=== PATIENT | female | born 1950 | race Caucasian/White ===

== ENCOUNTER 2016-10-10 12:49 | Emergency (ER) | payer BC ==
--- NOTE | 2016-10-10 14:49 | DIAGNOSTIC IMAGING REPORT ---
PROCEDURE: XR CHEST 2 VIEW INDICATION: COUGH TECHNIQUE: PA and lateral views. COMPARISON: Chest 06/17/2009 FINDINGS: Lungs are clear. Heart and mediastinum are normal. Thorax is normal. IMPRESSION: 1. Negative chest.
--- NOTE | 2016-10-10 16:13 | ED NURSING NOTES ---
Clinical Report - Nurses [facility] [address] [place] [address] 10/10/2016 12:51 Patient: JOVITA MENON TRIAGE Triage time 13:Oct 10 2016. Acuity: LEVEL 3. Chief Complaint: (cough). 13:10/10/16. SEPSIS SCREEN: Sepsis Screen: negative. Negative (no infection suspected/documented). --13:15 Emy Duran R.N. 13:08 10/10/16. BP: 147/87. HR: 85. RR: 16. O2 saturation: 97%. Temp: 97.9 F (oral). Pain level now: 0/10. --13:15 Emy Duran R.N. 13:25 10/10/16. --13:25 Emy Duran R.N. Weight: 57.1 kg stated. Height/Length: 65 inches Per Patient. BMI: 21. --13:07 Emy Duran R.N. Medications Albuterol Sulfate Inhalation. --13:27 Emy Duran R.N. Z-Pack- completed. --13:27 Emy Duran R.N. Prednisone -completed. --13:27 Emy Duran R.N. Allergies No Known Drug Allergy. --13:09 Emy Duran R.N. Medication/allergy information source: the patient. --13:15 Emy Duran R.N. History Arrived by private vehicle. Historian: patient. Onset. (1 months). ( has been to a few times, last today. Sent by for eval. Chest x ray saturday.). She has had a cough productive of moderate amounts of white sputum. She has had difficulty breathing. ( pain in lower chest with cough). No fever, weakness or skin rash. Denies muscle aches. Treatment [employer]: (completed abx and steroids). PAST MEDICAL HX: Has not received pneumonia vaccine or seasonal influenza immunization. SOCIAL HX: Heavy tobacco smoker- less than 1 pack per day (hasnt smoked since last saturday). Occasional alcohol use. No drug use. No infectious disease exposure. ABUSE ASSESSMENT: No report of abuse. SELF HARM ASSESSMENT: A self harm assessment was performed. The patient answered "no" to the question "Have you recently felt down, depressed, or hopeless?", "Have you noticed less interest or pleasure in doing things?", "Do you have thoughts of harming or killing yourself?", "Are you here because you tried to hurt yourself?", "Have you ever tried to hurt yourself before today?", "Have you recently had thoughts about harming or killing others?" and "Do you have any dangerous items in your possession?". FALL RISK ASSESSMENT: Fall risk assessment completed. No fall risk identified. NUTRITIONAL RISK ASSESSMENT: The nutritional risk assessment revealed no deficiencies. FUNCTIONAL ASSESSMENT: Functional assessment: no impairments noted. LEARNING NEEDS ASSESSMENT: The learning needs assessment revealed no barriers. SKIN INTEGRITY ASSESSMENT: Skin integrity risk assessment completed. No skin integrity risk identified. --13:15 Emy Duran R.N. ( Sent by family MD for failure of out patient treatment for URI). --13:25 Emy Duran R.N. PROBLEMS: Smoker. --13:28 Emy Duran R.N. ADDITIONAL SURGERIES: no known surgeries. Interventions ID band on patient. --13:15 Emy Duran R.N. PHYSICAL ASSESSMENT 13:10/10/16. Ambulatory to room. GENERAL / NEURO / PSYCH: Alert. Oriented X 4. Appears in no acute distress. HEENT: Pupils equal, round and reactive to light. Mucous membranes are pink. RESPIRATORY: Rhonchi present. CVS: Pulses within normal limits. GI / : Abdomen soft. SKIN: Skin intact. Skin is warm and dry. Normal skin turgor. --13:19 Emy Duran R.N. NURSING PROGRESS NOTES 13:10/10/16. The initial plan of care for this patient includes an assessment with efforts to address the presence of pain; impairment of the respiratory system. This plan of care was discussed with the patient. Patient gowned. Reassurance given. Two patient identifiers checked. Call light placed in reach. Side rails up x 1. Bed placed in lowest position. Brakes of bed on. Patient ready for evaluation. --13:18 Emy uDran R.N. 13:15 10/10/16. ( warm blanket given to patient). --13:25 Emy Duran R.N. 14:00 10/10/16. ( MD at bedside). --14:03 Emy Duran R.N. 14:15 10/10/16. Patient walked to radiology. (and returned). --14:15 Emy Duran R.N. 14:35 10/10/2016 Duoneb (Ipratropium-Albuterol) Neb TX Nebulizer 1 unit dose given. Given by the nurse. Allergies verified and confirmed 5 rights. (med prepared by RT). --14:35 Emy Duran R.N. 15:18 10/10/16. Overall patient status is the same- she states feels the same. ( cough, moist with rhonchi in bases). Patient waiting for radiology results and disposition. --15:18 Emy Duran R.N. 15:18 10/10/16. BP: 113/71. HR: 81. RR: 18. O2 saturation: 97%. Pain level now 0/10. --15:18 Emy Duran R.N. DISPOSITION / DISCHARGE 16:25 10/10/16. Condition at departure: improved and stable. The goals identified in the patient's plan of care were met. No learning barriers present. Discharge instructions provided and reviewed with the family. Reviewed medication(s) side effects, precautions, dosing and course information. Prescription(s) given to the patient. Reviewed nebulizer use instructions. Reviewed referral to a primary care physician for followup. Summary of care provided to patient. Patient verbalized understanding. Written instructions provided in Ukrainian. The patient was discharged home and accompanied by family. She left the Emergency Department ambulatory and via private vehicle. Family member driving. FALL RISK ASSESSMENT: Fall risk assessment completed. No fall risk identified. --19:26 Emy Duran R.N. 15:17 10/10/16. BP: 113/71. HR: 81. RR: 18. O2 saturation: 97%. Pain level now 0/10. --19:26 Emy Duran R.N. Departure time: 16:25 Oct 10 2016. --19:26 Emy Duran R.N. Locked/Released at 10/10/2016 19:27 by Emy Duran R.N.
--- NOTE | 2016-10-10 16:13 | ED NURSING NOTES ---
Clinical Report - Nurses [facility] [address] [place] [address] 10/10/2016 12:51 Patient: JOVITA MENON TRIAGE Triage time 13:Oct 10 2016. Acuity: LEVEL 3. Chief Complaint: (cough). 13:10/10/16. SEPSIS SCREEN: Sepsis Screen: negative. Negative (no infection suspected/documented). --13:15 Emy Duran R.N. 13:08 10/10/16. BP: 147/87. HR: 85. RR: 16. O2 saturation: 97%. Temp: 97.9 F (oral). Pain level now: 0/10. --13:15 Emy Duran R.N. 13:25 10/10/16. --13:25 Emy Duran R.N. Weight: 57.1 kg stated. Height/Length: 65 inches Per Patient. BMI: 21. --13:07 Emy Duran R.N. Medications Albuterol Sulfate Inhalation. --13:27 Emy Duran R.N. Z-Pack- completed. --13:27 Emy Duran R.N. Prednisone -completed. --13:27 Emy Duran R.N. Allergies No Known Drug Allergy. --13:09 Emy Duran R.N. Medication/allergy information source: the patient. --13:15 Emy Duran R.N. History Arrived by private vehicle. Historian: patient. Onset. (1 months). ( has been to a few times, last today. Sent by for eval. Chest x ray saturday.). She has had a cough productive of moderate amounts of white sputum. She has had difficulty breathing. ( pain in lower chest with cough). No fever, weakness or skin rash. Denies muscle aches. 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 PAST MEDICAL HX: Has not received pneumonia vaccine or seasonal influenza immunization. SOCIAL HX: Heavy tobacco smoker- less than 1 pack per day (hasnt smoked since last saturday). Occasional alcohol use. No drug use. No infectious disease exposure. ABUSE ASSESSMENT: No report of abuse. SELF HARM ASSESSMENT: A self harm assessment was performed. The patient answered "no" to the question "Have you recently felt down, depressed, or hopeless?", "Have you noticed less interest or pleasure in doing things?", "Do you have thoughts of harming or killing yourself?", "Are you here because you tried to hurt yourself?", "Have you ever tried to hurt yourself before today?", "Have you recently had thoughts about harming or killing others?" and "Do you have any dangerous items in your possession?". FALL RISK ASSESSMENT: Fall risk assessment completed. No fall risk identified. NUTRITIONAL RISK ASSESSMENT: The nutritional risk assessment revealed no deficiencies. FUNCTIONAL ASSESSMENT: Functional assessment: no impairments noted. LEARNING NEEDS ASSESSMENT: The learning needs assessment revealed no barriers. SKIN INTEGRITY ASSESSMENT: Skin integrity risk assessment completed. No skin integrity risk identified. --13:15 Emy Duran R.N. ( Sent by family MD for failure of out patient treatment for URI). --13:25 Emy Duran R.N. PROBLEMS: Smoker. --13:28 Emy Duran R.N. ADDITIONAL SURGERIES: no known surgeries. Interventions ID band on patient. --13:15 Emy Duran R.N. PHYSICAL ASSESSMENT 13:10/10/16. Ambulatory to room. GENERAL / NEURO / PSYCH: Alert. Oriented X 4. Appears in no acute distress. HEENT: Pupils equal, round and reactive to light. Mucous membranes are pink. RESPIRATORY: Rhonchi present. CVS: Pulses within normal limits. GI / : Abdomen soft. SKIN: Skin intact. Skin is warm and dry. Normal skin turgor. --13:19 Emy Duran R.N. NURSING PROGRESS NOTES 13:10/10/16. The initial plan of care for this patient includes an assessment with efforts to address the presence of pain; impairment of the respiratory system. This plan of care was discussed with the patient. Patient gowned. Reassurance given. Two patient identifiers checked. Call light placed in reach. Side rails up x 1. Bed placed in lowest position. Brakes of bed on. Patient ready for evaluation. --13:18 Emy Duran R.N. 13:15 10/10/16. ( warm blanket given to patient). --13:25 Emy Duran R.N. 14:00 10/10/16. ( MD at bedside). --14:03 Emy Duran R.N. 14:15 10/10/16. Patient walked to radiology. (and returned). --14:15 Emy Duran R.N. 14:35 10/10/2016 Duoneb (Ipratropium-Albuterol) Neb TX Nebulizer 1 unit dose given. Given by the nurse. Allergies verified and confirmed 5 rights. (med prepared by RT). --14:35 Emy Duran R.N. 15:18 10/10/16. Overall patient status is the same- she states feels the same. ( cough, moist with rhonchi in bases). Patient waiting for radiology results and disposition. --15:18 Emy Duran R.N. 15:18 10/10/16. BP: 113/71. HR: 81. RR: 18. O2 saturation: 97%. Pain level now 0/10. --15:18 Emy Duran R.N. DISPOSITION / DISCHARGE 16:25 10/10/16. Condition at departure: improved and stable. The goals identified in the patient's plan of care were met. No learning barriers present. Discharge instructions provided and reviewed with the family. Reviewed medication(s) side effects, precautions, dosing and course information. Prescription(s) given to the patient. Reviewed nebulizer use instructions. Reviewed referral to a primary care physician for followup. Summary of care provided to patient. Patient verbalized understanding. Written instructions provided in Azeri. The patient was discharged home and accompanied by family. She left the Emergency Department ambulatory and via private vehicle. Family member driving. FALL RISK ASSESSMENT: Fall risk assessment completed. No fall risk identified. --19:26 Emy Duran R.N. 15:17 10/10/16. BP: 113/71. HR: 81. RR: 18. O2 saturation: 97%. Pain level now 0/10. --19:26 Emy Duran R.N. Departure time: 16:25 Oct 10 2016. --19:26 Emy Duran R.N. Locked/Released at 10/10/2016 19:27 by Emy Duran R.N.
--- NOTE | 2016-10-10 16:13 | ED ORDER SUMMARY ---
..... Patient: JOVITA MENON OrderSheet [facility] VisitID: [id number] [address] [place] [address] 66y, F Registration Date/Time: 10/10/2016 ORDER SHEET Weight: 57.1 kg (stated) Allergies: No Known Drug Allergy GENERAL ORDERS: Chest 2V Urgent (14:03 10/10/2016 Fabi Fritz) (Ack 14:07 NHouse ER Tech1) (14:15 NHouse ER Tech1) MEDICATION ORDERS: DuoNeb Neb Tx 1 unit dose (NOW) (14:04 10/10/2016 Fabi Fritz) (14:35 Carole Mcgarry) Levofloxacin PO 500 mg (NOW) (16:14 10/10/2016 Fabi Fritz) IV FLUIDS: ORDER SHEET NOTES: [Electronically signed by Emy Duran R.N. (19:27 10/10/2016)] [Electronically signed by Balta Cohen Dr. (22:30 10/11/2016)] [Electronically locked/signed by Eym Duran R.N. (19:27 10/10/2016)]
--- NOTE | 2016-10-10 16:13 | ED CLINICAL REPORT ---
Clinical Report - Physicians/Mid Levels [facility] [address] [place] [address] 10/10/2016 12:51 Patient: JOVITA MENON Time Seen: 13:53; initial patient contact. Arrived- By private vehicle. Historian- patient. HISTORY OF PRESENT ILLNESS Chief Complaint: COUGH. This started about 1 1/2 weeks ago and is still present (persistent). It was gradual in onset. The illness is described as moderate. The patient has had sputum production, a cough, difficulty breathing, nasal congestion and sinus drainage. She has had a nasal discharge. No fever or chills. Additional history - No known contact with a sick individual. Similar symptoms previously: None. Recent medical care: The patient was seen recently in the office. ( Completed a Z pack last week, no better, now on another Z pack and Levaquin). REVIEW OF SYSTEMS No nausea, vomiting, pedal edema or calf pain. All systems otherwise negative, except as recorded above. PAST HISTORY COPD. Additional Surgeries: no known surgeries. Medications: Prednisone -completed. Z-Pack- completed. Albuterol Sulfate Inhalation. Allergies: No Known Drug Allergy. SOCIAL HISTORY Former smoker, end date 09/23/2017. PHYSICAL EXAM Vital Signs: 10/10/2016 13:08 BP: 147/87. HR: 85. RR: 16. O2 saturation: 97%. Temp: 97.9 F. Pain level now: 0/10. Have been reviewed. Hypertensive. Heart rate normal. Respiratory rate normal. Temperature normal. Oxygen saturation normal. Appearance: Alert. No acute distress. Eyes: Eyes normal inspection. ENT: Pharynx normal. Neck: Normal inspection. No JVD. CVS: Normal heart rate and rhythm. Heart sounds normal. Respiratory: Mild respiratory distress with accessory muscle use and retractions. Mildly prolonged expirations. Expiratory moderate bilateral wheezes diffusely. No rales or rhonchi. Skin: Skin warm and dry. Normal skin color. No rash. Normal skin turgor. Extremities: No calf tenderness. No lower extremity edema. Neuro: Oriented X 3. LABS, X-RAYS, AND EKG Chest X-ray: No acute disease. Moderate hyperinflation present on the right and left with flattening of the diaphragm and an increased AP diameter. Consistent with COPD. Normal lung markings present. Normal heart size. No infiltrate. Views: PA and lateral. Technique: good. The X-rays were independently viewed by me. Prior films were not available for comparison. PROGRESS AND PROCEDURES Course of Care: Prednisone 40 mg PO given. DuoNeb nebulizer treatment (1 unit dose) given. 10/10/2016 15:18 BP: 113/71. HR: 81. RR: 18. O2 saturation: 97%. Vital Signs: have been reviewed as normal. Symptoms much better. Disposition: Discharged home in good and improved condition. Condition: good. CLINICAL IMPRESSION 10/10/2016 15:18 BP: 113/71. HR: 81. RR: 18. O2 saturation: 97%. Vital Signs: have been reviewed as normal. Acute exacerbation of COPD. INSTRUCTIONS Your Current Medications: STOP TAKING THE FOLLOWING MEDICATIONS: Prednisone -completed*. Z-Pack- completed*. CONTINUE TAKING THE FOLLOWING MEDICATIONS: Albuterol Sulfate Inhalation. Prescription Medications: Levofloxacin 500 mg: take 1 tab orally every day for 4 days. (Start on 10/11/16) Prednisone 10 mg tablets: take 4 tablets every day for 5 days ; then take 2 tablets every day for 3 days ; then take 1 tablet every day for 2 days. Dispense sufficient quantity. No refills. Follow-up: Follow up with your doctor in about two days. Call for an appointment. Screening today revealed the patient's blood pressure to be in the normal range. (Electronically signed by Balta Cohen Dr. 10/11/2016 22:30)
--- NOTE | 2016-10-10 16:13 | ED ORDER SUMMARY ---
..... Patient: JOVITA MENON OrderSheet [facility] VisitID: [id number] [address] [place] [address] 66y, F Registration Date/Time: 10/10/2016 ORDER SHEET Weight: 57.1 kg (stated) Allergies: No Known Drug Allergy GENERAL ORDERS: Chest 2V Urgent (14:03 10/10/2016 Fabi Fritz) (Ack 14:07 NHouse ER Tech1) (14:15 NHouse ER Tech1) MEDICATION ORDERS: DuoNeb Neb Tx 1 unit dose (NOW) (14:04 10/10/2016 Fabi Fritz) (14:35 Carole Mcgarry) Levofloxacin PO 500 mg (NOW) (16:14 10/10/2016 Fabi Fritz) IV FLUIDS: ORDER SHEET NOTES: [Electronically signed by Emy Duran R.N. (19:27 10/10/2016)] [Electronically signed by Balta Cohen Dr. (22:30 10/11/2016)] [Electronically locked/signed by Emy Duran R.N. (19:27 10/10/2016)]
--- NOTE | 2016-10-11 22:30 | ED DISCHARGE INSTRUCTIONS ---
Patient: JOVITA MENON General Instructions [facility] VisitID: [id number] [address] [place] [address] 66y, F Registration Date/Time: 10/10/2016 10/10/2016 15:18 BP: 113/71. HR: 81. RR: 18. O2 saturation: 97%. Vital Signs: have been reviewed as normal. Acute exacerbation of COPD. INSTRUCTIONS Your Current Medications: STOP TAKING THE FOLLOWING MEDICATIONS: Prednisone -completed*. Z-Pack- completed*. CONTINUE TAKING THE FOLLOWING MEDICATIONS: Albuterol Sulfate Inhalation. Prescription Medications: Levofloxacin 500 mg: take 1 tab orally every day for 4 days. (Start on 10/11/16) Prednisone 10 mg tablets: take 4 tablets every day for 5 days ; then take 2 tablets every day for 3 days ; then take 1 tablet every day for 2 days. Dispense sufficient quantity. No refills. Follow-up: Follow up with your doctor in about two days. Call for an appointment. Screening today revealed the patient's blood pressure to be in the normal range. ADDITIONAL INFORMATION COPD Flare Both emphysema and chronic bronchitis are forms of chronic obstructive pulmonary disease (COPD). It is most often caused by many years of smoking tobacco. Many things can make your lung disease suddenly get worse. These causes include the common cold, pneumonia, acute bronchitis, missing doses of your regular breathing medicines, or being around smoke, dust, or other air pollutants. A COPD flare may last 7 to 14 days. Your doctor may prescribe medicineto relax your airways and prevent wheezing. Your doctor may also prescribe antibiotics if he or she thinks you havea bacterial infection. Prednisone can helpease inflammation in a severe attack. Home care Here are things you can do at home: Drink lots of water or other fluids (at least 10 glasses a day) during an attack. This will loosen lung secretions and make it easier to breathe. If you have heart or kidney disease, check with your doctor before you drink extra amounts of fluids. Take prescribed medicine exactly at the times advised. If you have a hand-held inhaler or aerosol breathing medicine, don't use it more than once every 4 hours, unless your doctor tells you to. If you were givenan antibiotic or prednisone, take all of the medicine even if you are feeling better after a few days. Don't smoke. Avoid being aroundthe smoke of others. If you were given an inhaler, use it exactly as directed. If you need to use it more often than prescribed, your condition may be getting worse. Call your doctor. Follow-up care Follow up with your health care provider.If you are 65 or older or have chronic asthma or COPD, you should get a single dose of the pneumococcal vaccine and aflu shot each year. You may need a second dose of the pneumococcal vaccine if you had the first dose at a younger age. Your health care provider will let you know if you need a second dose. For all other people, the usual dose for the pneumococcal vaccine is 1 or 2 shots. Yourprovider can discuss this with you. When to seek medical care Get prompt medical attention ifany of these occur: Increased wheezing or shortness of breath Need to use your inhalers more often than usual without relief Fever of 100.4F(38C) or higher, or as directed by your health care provider Coughing up lots of dark-colored or bloody sputum (mucus) Chest pain with each breath You do not start to improve within 24 hours Prednisone Oral tablet What is this medicine? PREDNISONE (PRED ni sone) is a corticosteroid. It is commonly used to treat inflammation of the skin, joints, lungs, and other organs. Common conditions treated include asthma, allergies, and arthritis. It is also used for other conditions, such as blood disorders and diseases of the adrenal glands. How should I use this medicine? Take this medicine by mouth with a glass of water. Follow the directions on the prescription label. Take this medicine with food. If you are taking this medicine once a day, take it in the morning. Do not take more medicine than you are told to take. Do not suddenly stop taking your medicine because you may develop a severe reaction. Your doctor will tell you how much medicine to take. If your doctor wants you to stop the medicine, the dose may be slowly lowered over time to avoid any side effects. Talk to your summer nanny regarding the use of this medicine in children. Special care may be needed. What side effects may I notice from receiving this medicine? Side effects that you should report to your doctor or health home care manager as soon as possible: allergic reactions like skin rash, itching or hives, swelling of the face, lips, or tongue changes in emotions or moods changes in vision depressed mood eye pain fever or chills, cough, sore throat, pain or difficulty passing urine increased thirst swelling of ankles, feet Side effects that usually do not require medical attention (report to your doctor or health home care manager if they continue or are bothersome): confusion, excitement, restlessness headache nausea, vomiting skin problems, acne, thin and shiny skin trouble sleeping weight gain What may interact with this medicine? Do not take this medicine with any of the following medications: metyrapone mifepristone This medicine may also interact with the following medications: aminoglutethimide amphotericin B aspirin and aspirin-like medicines barbiturates certain medicines for diabetes, like glipizide or glyburide cholestyramine cholinesterase inhibitors cyclosporine digoxin diuretics ephedrine female hormones, like estrogens and control pills isoniazid ketoconazole NSAIDS, medicines for pain and inflammation, like ibuprofen or naproxen phenytoin rifampin toxoids vaccines warfarin What if I miss a dose? If you miss a dose, take it as soon as you can. If it is almost time for your next dose, talk to your doctor or health home care manager. You may need to miss a dose or take an extra dose. Do not take double or extra doses without advice. Where should I keep my medicine? Keep out of the reach of children. Store at room temperature between 15 and 30 degrees C (59 and 86 degrees F). Protect from light. Keep container tightly closed. Throw away any unused medicine after the expiration date. What should I tell my health care provider before I take this medicine? They need to know if you have any of these conditions: Krysten's syndrome diabetes glaucoma heart disease high blood pressure infection (especially a virus infection such as chickenpox, cold sores, or herpes) kidney disease liver disease mental illness myasthenia gravis osteoporosis seizures stomach or intestine problems thyroid disease an unusual or allergic reaction to lactose, prednisone, other medicines, foods, dyes, or preservatives or trying to get breast-feeding What should I watch for while using this medicine? Visit your doctor or health home care manager for regular checks on your progress. If you are taking this medicine over a prolonged period, carry an identification card with your name and address, the type and dose of your medicine, and your doctor's name and address. This medicine may increase your risk of getting an infection. Tell your doctor or health home care manager if you are around anyone with measles or chickenpox, or if you develop sores or blisters that do not heal properly. If you are going to have surgery, tell your doctor or health home care manager that you have taken this medicine within the last twelve months. Ask your doctor or health home care manager about your diet. You may need to lower the amount of salt you eat. This medicine may affect blood sugar levels. If you have diabetes, check with your doctor or health home care manager before you change your diet or the dose of your diabetic medicine. You have been given the following additional information: COPD Flare Prednisone Oral tablet (Electronically signed by Balta Cohen Dr. 10/11/2016 22:30)
--- NOTE | 2016-10-11 22:30 | ED MED RECONCILIATION SUMMARY ---
Patient: JOVITA MENON Medication Reconciliation Report [facility] VisitID: [id number] [address] [place] [address] 66y, F Registration Date/Time: 10/10/2016 Weight: 57.1 kg Height/Length: 65 in. BMI: 21.0 ALLERGIES: No Known Drug Allergy The patient's Home Medications are listed below: STOP TAKING THE FOLLOWING MEDICATIONS: Prednisone -completed Z-Pack- completed CONTINUE TAKING THE FOLLOWING MEDICATIONS: Albuterol Sulfate Inhalation The source(s) of the original Home Medication information: patient The following Medications were given to the patient in the Emergency Department: Duoneb [Neb Tx] Neb TX 1 unit dose, administered: 10/10/2016 2:35:00 PM The following Medications were prescribed to the patient: Levofloxacin 500 mg: take 1 tab orally every day for 4 days.(Start on 10/11/16) -- Balta Cohen Dr. Prednisone 10 mg tablets: take 4 tablets every day for 5 days ; then take 2 tablets every day for 3 days ; then take 1 tablet every day for 2 days. Dispense sufficient quantity. No refills. -- Balta Cohen Dr.
--- NOTE | 2016-10-11 22:30 | ED MAR SUMMARY ---
..... Medication Administration Record [facility] [address] [place] [address] Patient: JOVITA MENON Visit ID: [id number] 66y, F Weight: 57.1 kg Height/Length: 65 in BMI: 21 ALLERGIES: No Known Drug Allergy Given 14:35 10/10/2016 Emy Duran R.N. Medication Administered: DUONEB [NEB TX] (IPRATROPIUM-ALBUTEROL), Dose: 1 unit dose Nebulizer Neb TX. Medication Ordered: DuoNeb Neb Tx 1 unit dose (NOW).
--- NOTE | 2016-10-11 22:30 | ED DISCHARGE INSTRUCTIONS ---
Patient: JOVITA MENON General Instructions [facility] VisitID: [id number] [address] [place] [address] 66y, F Registration Date/Time: 10/10/2016 10/10/2016 15:18 BP: 113/71. HR: 81. RR: 18. O2 saturation: 97%. Vital Signs: have been reviewed as normal. Acute exacerbation of COPD. INSTRUCTIONS Your Current Medications: STOP TAKING THE FOLLOWING MEDICATIONS: Prednisone -completed*. Z-Pack- completed*. CONTINUE TAKING THE FOLLOWING MEDICATIONS: Albuterol Sulfate Inhalation. Prescription Medications: Levofloxacin 500 mg: take 1 tab orally every day for 4 days. (Start on 10/11/16) Prednisone 10 mg tablets: take 4 tablets every day for 5 days ; then take 2 tablets every day for 3 days ; then take 1 tablet every day for 2 days. Dispense sufficient quantity. No refills. Follow-up: Follow up with your doctor in about two days. Call for an appointment. Screening today revealed the patient's blood pressure to be in the normal range. ADDITIONAL INFORMATION COPD Flare Both emphysema and chronic bronchitis are forms of chronic obstructive pulmonary disease (COPD). It is most often caused by many years of smoking tobacco. Many things can make your lung disease suddenly get worse. These causes include the common cold, pneumonia, acute bronchitis, missing doses of your regular breathing medicines, or being around smoke, dust, or other air pollutants. A COPD flare may last 7 to 14 days. Your doctor may prescribe medicineto relax your airways and prevent wheezing. Your doctor may also prescribe antibiotics if he or she thinks you havea bacterial infection. Prednisone can helpease inflammation in a severe attack. Home care Here are things you can do at home: Drink lots of water or other fluids (at least 10 glasses a day) during an attack. This will loosen lung secretions and make it easier to breathe. If you have heart or kidney disease, check with your doctor before you drink extra amounts of fluids. Take prescribed medicine exactly at the times advised. If you have a hand-held inhaler or aerosol breathing medicine, don't use it more than once every 4 hours, unless your doctor tells you to. If you were givenan antibiotic or prednisone, take all of the medicine even if you are feeling better after a few days. Don't smoke. Avoid being aroundthe smoke of others. If you were given an inhaler, use it exactly as directed. If you need to use it more often than prescribed, your condition may be getting worse. Call your doctor. Follow-up care Follow up with your health care provider.If you are 65 or older or have chronic asthma or COPD, you should get a single dose of the pneumococcal vaccine and aflu shot each year. You may need a second dose of the pneumococcal vaccine if you had the first dose at a younger age. Your health care provider will let you know if you need a second dose. For all other people, the usual dose for the pneumococcal vaccine is 1 or 2 shots. Yourprovider can discuss this with you. When to seek medical care Get prompt medical attention ifany of these occur: Increased wheezing or shortness of breath Need to use your inhalers more often than usual without relief Fever of 100.4F(38C) or higher, or as directed by your health care provider Coughing up lots of dark-colored or bloody sputum (mucus) Chest pain with each breath You do not start to improve within 24 hours Prednisone Oral tablet What is this medicine? PREDNISONE (PRED ni sone) is a corticosteroid. It is commonly used to treat inflammation of the skin, joints, lungs, and other organs. Common conditions treated include asthma, allergies, and arthritis. It is also used for other conditions, such as blood disorders and diseases of the adrenal glands. How should I use this medicine? Take this medicine by mouth with a glass of water. Follow the directions on the prescription label. Take this medicine with food. If you are taking this medicine once a day, take it in the morning. Do not take more medicine than you are told to take. Do not suddenly stop taking your medicine because you may develop a severe reaction. Your doctor will tell you how much medicine to take. If your doctor wants you to stop the medicine, the dose may be slowly lowered over time to avoid any side effects. Talk to your coroner forensic technician regarding the use of this medicine in children. Special care may be needed. What side effects may I notice from receiving this medicine? Side effects that you should report to your doctor or health healthcare administrator as soon as possible: allergic reactions like skin rash, itching or hives, swelling of the face, lips, or tongue changes in emotions or moods changes in vision depressed mood eye pain fever or chills, cough, sore throat, pain or difficulty passing urine increased thirst swelling of ankles, feet Side effects that usually do not require medical attention (report to your doctor or health healthcare administrator if they continue or are bothersome): confusion, excitement, restlessness headache nausea, vomiting skin problems, acne, thin and shiny skin trouble sleeping weight gain What may interact with this medicine? Do not take this medicine with any of the following medications: metyrapone mifepristone This medicine may also interact with the following medications: aminoglutethimide amphotericin B aspirin and aspirin-like medicines barbiturates certain medicines for diabetes, like glipizide or glyburide cholestyramine cholinesterase inhibitors cyclosporine digoxin diuretics ephedrine female hormones, like estrogens and control pills isoniazid ketoconazole NSAIDS, medicines for pain and inflammation, like ibuprofen or naproxen phenytoin rifampin toxoids vaccines warfarin What if I miss a dose? If you miss a dose, take it as soon as you can. If it is almost time for your next dose, talk to your doctor or health healthcare administrator. You may need to miss a dose or take an extra dose. Do not take double or extra doses without advice. Where should I keep my medicine? Keep out of the reach of children. Store at room temperature between 15 and 30 degrees C (59 and 86 degrees F). Protect from light. Keep container tightly closed. Throw away any unused medicine after the expiration date. What should I tell my health care provider before I take this medicine? They need to know if you have any of these conditions: Krysten's syndrome diabetes glaucoma heart disease high blood pressure infection (especially a virus infection such as chickenpox, cold sores, or herpes) kidney disease liver disease mental illness myasthenia gravis osteoporosis seizures stomach or intestine problems thyroid disease an unusual or allergic reaction to lactose, prednisone, other medicines, foods, dyes, or preservatives or trying to get breast-feeding What should I watch for while using this medicine? Visit your doctor or health healthcare administrator for regular checks on your progress. If you are taking this medicine over a prolonged period, carry an identification card with your name and address, the type and dose of your medicine, and your doctor's name and address. This medicine may increase your risk of getting an infection. Tell your doctor or health healthcare administrator if you are around anyone with measles or chickenpox, or if you develop sores or blisters that do not heal properly. If you are going to have surgery, tell your doctor or health healthcare administrator that you have taken this medicine within the last twelve months. Ask your doctor or health healthcare administrator about your diet. You may need to lower the amount of salt you eat. This medicine may affect blood sugar levels. If you have diabetes, check with your doctor or health healthcare administrator before you change your diet or the dose of your diabetic medicine. You have been given the following additional information: COPD Flare Prednisone Oral tablet (Electronically signed by Balta Cohen Dr. 10/11/2016 22:30)
--- NOTE | 2016-10-11 22:30 | ED MED RECONCILIATION SUMMARY ---
Patient: JOVITA MENON Medication Reconciliation Report [facility] VisitID: [id number] [address] [place] [address] 66y, F Registration Date/Time: 10/10/2016 Weight: 57.1 kg Height/Length: 65 in. BMI: 21.0 ALLERGIES: No Known Drug Allergy The patient's Home Medications are listed below: STOP TAKING THE FOLLOWING MEDICATIONS: Prednisone -completed Z-Pack- completed CONTINUE TAKING THE FOLLOWING MEDICATIONS: Albuterol Sulfate Inhalation The source(s) of the original Home Medication information: patient The following Medications were given to the patient in the Emergency Department: Duoneb [Neb Tx] Neb TX 1 unit dose, administered: 10/10/2016 2:35:00 PM The following Medications were prescribed to the patient: Levofloxacin 500 mg: take 1 tab orally every day for 4 days.(Start on 10/11/16) -- Balta Cohen Dr. Prednisone 10 mg tablets: take 4 tablets every day for 5 days ; then take 2 tablets every day for 3 days ; then take 1 tablet every day for 2 days. Dispense sufficient quantity. No refills. -- Balta Cohen Dr.
--- NOTE | 2016-10-11 22:30 | ED MAR SUMMARY ---
..... Medication Administration Record [facility] [address] [place] [address] Patient: JOVITA MENON Visit ID: [id number] 66y, F Weight: 57.1 kg Height/Length: 65 in BMI: 21 ALLERGIES: No Known Drug Allergy Given 14:35 10/10/2016 Emy Duran R.N. Medication Administered: DUONEB [NEB TX] (IPRATROPIUM-ALBUTEROL), Dose: 1 unit dose Nebulizer Neb TX. Medication Ordered: DuoNeb Neb Tx 1 unit dose (NOW).
== END 2016-10-10 16:25 | disposition home or self-care (01) ==
LOC: ED SRH 12:49
DX: J44.1 Chronic obstructive pulmonary disease with (acute) exacerbation (principal); Z87.891 Personal history of nicotine dependence